=== PATIENT | female | born 1985 | race Caucasian/White ===

== ENCOUNTER 2018-10-13 15:58 | Inpatient (IN) | payer MEDICAID ==
[2018-10-13 16:31] LABS: ADD MAN DIFF? NO
[2018-10-13 16:33] LABS: BASOPHILS % 0.2 % (0.0-2.0); EOSINOPHILS # 0.1 10^3/ul (0.0-0.5); EOSINOPHILS % 1.1 % (0.0-7.0); HEMATOCRIT 36.4 % (37.0-47.0); HEMOGLOBIN 12.6 g/dl (12.0-16.0); LYMPHOCYTES # 2.4 10^3/ul (0.8-2.9); MEAN CORPUSCULAR HEMOGLOBIN 31.2 pg (29.0-33.0); MEAN CORPUSCULAR HGB CONC 34.6 g/dl (32.0-37.0); MEAN CORPUSCULAR VOLUME 90.1 fl (82.0-101.0); MEAN PLATELET VOLUME 10.3 fl (7.4-10.4); MONOCYTE # 0.7 10^3/ul (0.3-0.9); MONOCYTES % 8.1 % (0.0-11.0); NEUTROPHIL # 5.1 10^3/ul (1.6-7.5); NEUTROPHILS % 61.2 % (39.0-77.0); PLATELET COUNT 210 10^3/UL (140-415); RED BLOOD COUNT 4.04 10^6/ul (4.20-5.40); RED CELL DISTRIBUTION WIDTH 12.5 % (11.5-14.5)
[2018-10-13 16:33] LABS: WHITE BLOOD COUNT 8.3 10^3/ul (4.8-10.8)
[2018-10-13 16:51] LABS: ALANINE AMINOTRANSFERASE 21 IU/L (13-69); ALBUMIN 3.3 g/dl (3.3-4.9); ALKALINE PHOSPHATASE 145 IU/L (42-121); ANION GAP 7 (5-13); ASPARTATE AMINO TRANSFERASE 36 IU/L (15-46); BILIRUBIN,INDIRECT 0.1 mg/dl (0-1.1); BILIRUBIN,TOTAL 0.1 mg/dl (0.2-1.3); BLOOD UREA NITROGEN 9 mg/dl (7-20); CALCIUM 9.1 mg/dl (8.4-10.2); CARBON DIOXIDE 21 mmol/L (21-31); CHLORIDE 108 mmol/L (97-110); CREATININE 0.52 mg/dl (0.44-1.00); Estimated GFR > 60 mL/min (>60); GLUCOSE 82 mg/dl (70-220); POTASSIUM 4.1 mmol/L (3.5-5.1); SODIUM 136 mmol/L (135-144); TOTAL PROTEIN 6.6 g/dl (6.1-8.1); URIC ACID 5.5 mg/dl (3.1-7.9)
[2018-10-13 16:52] LABS: INR 0.76; PARTIAL THROMBOPLASTIN TIME 26.9 Sec (23.0-35.0); PROTIME 10.7 Sec (11.9-14.9); PT RATIO 0.8
[2018-10-13 16:56] LABS: ADD UMIC YES; UR ASCORBIC ACID NEGATIVE (NEGATIVE); UR BACTERIA FEW /HPF (NONE SEEN); UR BILIRUBIN (Dip) NEGATIVE (NEGATIVE); UR BLOOD (Dip) NEGATIVE (NEGATIVE); UR CLARITY CLEAR (CLEAR); UR COLOR YELLOW (YELLOW); UR GLUCOSE (Dip) NEGATIVE (NEGATIVE); UR KETONES (Dip) NEGATIVE (NEGATIVE); UR LEUKOCYTE ESTERASE (Dip) NEGATIVE Leu/ul (NEGATIVE); UR NITRITE (Dip) NEGATIVE (NEGATIVE); UR RBC 1 /HPF (0-5); UR SPECIFIC GRAVITY (Dip) 1.013 (1.003-1.030); UR TOTAL PROTEIN (Dip) 2+ mg/dl (NEGATIVE); UR UROBILINOGEN (Dip) NEGATIVE (NEGATIVE); UR WBC 0 /HPF (0-5)
[2018-10-13] MEDS: LACTATED RINGER'S 1,000 ML IV ×2 (19:49→23:33)
[2018-10-14] MEDS: LACTATED RINGER'S 1,000 ML IV (07:19)
[2018-10-14] MEDS: FERROUS SULFATE (EC) 325 MG TAB PO (09:03)
[2018-10-14] MEDS: PRENATAL VITAMIN PO (09:03)
[2018-10-14 12:16] LABS: ADD MAN DIFF? NO
[2018-10-14 12:18] LABS: BASOPHILS % 0.3 % (0.0-2.0); EOSINOPHILS # 0.1 10^3/ul (0.0-0.5); HEMATOCRIT 32.3 % (37.0-47.0); HEMOGLOBIN 11.5 g/dl (12.0-16.0); LYMPHOCYTES # 1.9 10^3/ul (0.8-2.9); LYMPHOCYTES % 26.8 % (15.0-51.0); MEAN CORPUSCULAR HEMOGLOBIN 31.9 pg (29.0-33.0); MEAN CORPUSCULAR HGB CONC 35.6 g/dl (32.0-37.0); MEAN CORPUSCULAR VOLUME 89.5 fl (82.0-101.0); MEAN PLATELET VOLUME 10.7 fl (7.4-10.4); MONOCYTE # 0.6 10^3/ul (0.3-0.9); MONOCYTES % 7.8 % (0.0-11.0); NEUTROPHIL # 4.6 10^3/ul (1.6-7.5); NEUTROPHILS % 63.8 % (39.0-77.0); PLATELET COUNT 183 10^3/UL (140-415); RED BLOOD COUNT 3.61 10^6/ul (4.20-5.40); RED CELL DISTRIBUTION WIDTH 12.5 % (11.5-14.5)
[2018-10-14 12:18] LABS: WHITE BLOOD COUNT 7.2 10^3/ul (4.8-10.8)
[2018-10-14 12:44] LABS: ALANINE AMINOTRANSFERASE 21 IU/L (13-69); ALBUMIN 2.7 g/dl (3.3-4.9); ALBUMIN/GLOBULIN RATIO 1.03; ALKALINE PHOSPHATASE 114 IU/L (42-121); ANION GAP 5 (5-13); ASPARTATE AMINO TRANSFERASE 33 IU/L (15-46); BILIRUBIN,INDIRECT 0.2 mg/dl (0-1.1); BILIRUBIN,TOTAL 0.2 mg/dl (0.2-1.3); BLOOD UREA NITROGEN 9 mg/dl (7-20); CALCIUM 8.9 mg/dl (8.4-10.2); CARBON DIOXIDE 22 mmol/L (21-31); CHLORIDE 111 mmol/L (97-110); CREATININE 0.52 mg/dl (0.44-1.00); Estimated GFR > 60 mL/min (>60); GLUCOSE 91 mg/dl (70-220); POTASSIUM 3.9 mmol/L (3.5-5.1); SODIUM 138 mmol/L (135-144); TOTAL PROTEIN 5.3 g/dl (6.1-8.1); URIC ACID 6.3 mg/dl (3.1-7.9)
[2018-10-14 18:10] LABS: COLLECTION PERIOD 24 hrs
[2018-10-14 18:31] LABS: VOLUME 1900 mls
[2018-10-14 18:33] LABS: 24HR URINE TOTAL PROTEIN > 600.0 mg/24hrs (42.0-225.0); COLLECTION PERIOD 24 hrs; CREATININE CLEARANCE 170.8 mls/min (84.0-162.0); CREATININE,URINE RANDOM 67.33 mg/dl (20-320); SCRET 0.52 mg/dl (0.44-1.00); VOLUME 1900 ml/24hrs
[2018-10-15] MEDS: FERROUS SULFATE (EC) 325 MG TAB PO (10:18)
[2018-10-15] MEDS: PRENATAL VITAMIN PO (10:18)
[2018-10-15] MEDS: DEXAMETHASONE 10 MG/ML 1 ML INJ IM ×2 (10:18→22:09)
[2018-10-16] MEDS: FERROUS SULFATE (EC) 325 MG TAB PO (08:31)
[2018-10-16] MEDS: PRENATAL VITAMIN PO (08:31)
[2018-10-16] MEDS: DEXAMETHASONE 10 MG/ML 1 ML INJ IM ×2 (09:41→23:19)
[2018-10-16 14:08] LABS: ADD MAN DIFF? NO
[2018-10-16 14:10] LABS: BASOPHILS % 0.1 % (0.0-2.0); HEMATOCRIT 33.8 % (37.0-47.0); HEMOGLOBIN 11.6 g/dl (12.0-16.0); LYMPHOCYTES # 1.2 10^3/ul (0.8-2.9); LYMPHOCYTES % 12.2 % (15.0-51.0); MEAN CORPUSCULAR HEMOGLOBIN 30.8 pg (29.0-33.0); MEAN CORPUSCULAR HGB CONC 34.3 g/dl (32.0-37.0); MEAN CORPUSCULAR VOLUME 89.7 fl (82.0-101.0); MEAN PLATELET VOLUME 10.1 fl (7.4-10.4); MONOCYTE # 0.4 10^3/ul (0.3-0.9); NEUTROPHIL # 7.9 10^3/ul (1.6-7.5); NEUTROPHILS % 82.9 % (39.0-77.0); PLATELET COUNT 191 10^3/UL (140-415); RED BLOOD COUNT 3.77 10^6/ul (4.20-5.40); RED CELL DISTRIBUTION WIDTH 12.4 % (11.5-14.5)
[2018-10-16 14:10] LABS: WHITE BLOOD COUNT 9.5 10^3/ul (4.8-10.8)
[2018-10-16 14:29] LABS: INR 0.82; PROTIME 11.4 Sec (11.9-14.9); PT RATIO 0.9
[2018-10-16 14:30] LABS: PARTIAL THROMBOPLASTIN TIME 24.6 Sec (23.0-35.0)
[2018-10-16 14:31] LABS: ALANINE AMINOTRANSFERASE 15 IU/L (13-69); ALBUMIN 3.1 g/dl (3.3-4.9); ALKALINE PHOSPHATASE 116 IU/L (42-121); ANION GAP 7 (5-13); ASPARTATE AMINO TRANSFERASE 29 IU/L (15-46); BILIRUBIN,INDIRECT 0.1 mg/dl (0-1.1); BILIRUBIN,TOTAL 0.1 mg/dl (0.2-1.3); BLOOD UREA NITROGEN 11 mg/dl (7-20); CALCIUM 9.1 mg/dl (8.4-10.2); CARBON DIOXIDE 21 mmol/L (21-31); CHLORIDE 108 mmol/L (97-110); CREATININE 0.58 mg/dl (0.44-1.00); Estimated GFR > 60 mL/min (>60); GLUCOSE 126 mg/dl (70-220); POTASSIUM 4.3 mmol/L (3.5-5.1); SODIUM 136 mmol/L (135-144); TOTAL PROTEIN 5.9 g/dl (6.1-8.1); URIC ACID 5.9 mg/dl (3.1-7.9)
[2018-10-17] MEDS: PRENATAL VITAMIN PO (08:45)
[2018-10-17] MEDS: FERROUS SULFATE (EC) 325 MG TAB PO (08:45)
== END 2018-10-17 15:20 | disposition home or self-care (01) | DRG 833 ==
LOC: OBT 15:58 → L-D 16:00 → OBT 17:25 → PP1 17:25
DX: O13.3 Gestational [pregnancy-induced] hypertension without significant proteinuria, third trimester (principal); R51 Headache; Z3A.33 33 weeks gestation of pregnancy
CPT/HCPCS: 76815; 76818; 80053; 81001; 82575; 84156; 84560; 85025; 85610; 85730

== ENCOUNTER 2018-10-20 12:59 | Inpatient (IN) | payer MEDICAID ==
[2018-10-20 13:57] LABS: ADD MAN DIFF? NO
[2018-10-20 14:01] LABS: BASOPHILS % 0.3 % (0.0-2.0); EOSINOPHILS # 0.1 10^3/ul (0.0-0.5); HEMATOCRIT 35.7 % (37.0-47.0); HEMOGLOBIN 12.3 g/dl (12.0-16.0); LYMPHOCYTES % 21.8 % (15.0-51.0); MEAN CORPUSCULAR HEMOGLOBIN 30.8 pg (29.0-33.0); MEAN CORPUSCULAR HGB CONC 34.5 g/dl (32.0-37.0); MEAN CORPUSCULAR VOLUME 89.3 fl (82.0-101.0); MEAN PLATELET VOLUME 10.4 fl (7.4-10.4); MONOCYTE # 0.6 10^3/ul (0.3-0.9); MONOCYTES % 6.6 % (0.0-11.0); NEUTROPHIL # 6.4 10^3/ul (1.6-7.5); NEUTROPHILS % 69.8 % (39.0-77.0); PLATELET COUNT 141 10^3/UL (140-415); RED CELL DISTRIBUTION WIDTH 12.6 % (11.5-14.5)
[2018-10-20 14:01] LABS: WHITE BLOOD COUNT 9.1 10^3/ul (4.8-10.8)
[2018-10-20 14:06] LABS: ADD UMIC YES; UR ASCORBIC ACID NEGATIVE (NEGATIVE); UR BACTERIA FEW /HPF (NONE SEEN); UR BILIRUBIN (Dip) NEGATIVE (NEGATIVE); UR BLOOD (Dip) NEGATIVE (NEGATIVE); UR CLARITY SLIGHTLY CLOUDY (CLEAR); UR COLOR YELLOW (YELLOW); UR GLUCOSE (Dip) NEGATIVE (NEGATIVE); UR KETONES (Dip) NEGATIVE (NEGATIVE); UR LEUKOCYTE ESTERASE (Dip) NEGATIVE Leu/ul (NEGATIVE); UR NITRITE (Dip) NEGATIVE (NEGATIVE); UR RBC 1 /HPF (0-5); UR SPECIFIC GRAVITY (Dip) 1.005 (1.003-1.030); UR TOTAL PROTEIN (Dip) 3+ mg/dl (NEGATIVE); UR UROBILINOGEN (Dip) NEGATIVE (NEGATIVE); UR WBC 2 /HPF (0-5)
[2018-10-20 14:21] LABS: ALANINE AMINOTRANSFERASE 58 IU/L (13-69); ALBUMIN 2.9 g/dl (3.3-4.9); ALBUMIN/GLOBULIN RATIO 1.07; ALKALINE PHOSPHATASE 121 IU/L (42-121); ANION GAP 5 (5-13); ASPARTATE AMINO TRANSFERASE 59 IU/L (15-46); BILIRUBIN,INDIRECT 0.3 mg/dl (0-1.1); BILIRUBIN,TOTAL 0.3 mg/dl (0.2-1.3); BLOOD UREA NITROGEN 9 mg/dl (7-20); CALCIUM 8.8 mg/dl (8.4-10.2); CARBON DIOXIDE 21 mmol/L (21-31); CHLORIDE 108 mmol/L (97-110); CREATININE 0.51 mg/dl (0.44-1.00); Estimated GFR > 60 mL/min (>60); GLUCOSE 61 mg/dl (70-220); INR 0.85; PARTIAL THROMBOPLASTIN TIME 28.6 Sec (23.0-35.0); POTASSIUM 3.9 mmol/L (3.5-5.1); PROTIME 11.7 Sec (11.9-14.9); PT RATIO 0.9; SODIUM 134 mmol/L (135-144); TOTAL PROTEIN 5.6 g/dl (6.1-8.1); URIC ACID 6.1 mg/dl (3.1-7.9)
[2018-10-20] MEDS ORDERED: CARBOPROST 250 MCG INJ IM (15:30)
[2018-10-20] MEDS ORDERED: METHYLERGONOVINE 0.2 MG INJ IM (15:30)
[2018-10-20] MEDS ORDERED: OXYTOCIN 30 UNITS/LR 500 ML IV ×2 (15:30)
[2018-10-20] MEDS ORDERED: MISOPROSTOL 200 MCG TAB PR (15:30)
[2018-10-20] MEDS ORDERED: LIDOCAINE 1% (MPF) 30 ML INJ INJ (15:30)
[2018-10-20] MEDS ORDERED: BUTORPHANOL 2 MG INJ IV (15:30)
[2018-10-20] MEDS ORDERED: BUTORPHANOL 1 MG INJ IV (15:30)
[2018-10-20] MEDS: LACTATED RINGER'S 1,000 ML IV ×2 (15:46→23:12)
[2018-10-20] MEDS: MAGNESIUM SULFATE 4 GM/100 ML 100 ML IV (15:47)
[2018-10-20] MEDS: MAGNESIUM SULFATE 20 GM/500 ML 500 ML IV (16:48)
[2018-10-20] MEDS: ACETAMINOPHEN 325 MG TAB PO (17:22)
[2018-10-20] MEDS ORDERED: LABETALOL HCL 20MG INJ IV ×2 (17:30)
[2018-10-20] MEDS: MISOPROSTOL 50 MCG CAPSULE PO ×2 (17:50→22:00)
[2018-10-20 18:00] LABS: HEPATITIS B SURFACE ANTIGEN NEGATIVE (NEGATIVE)
[2018-10-20] MEDS: DEXAMETHASONE 4 MG/ML 5 ML INJ IM (21:23)
[2018-10-21 01:09] LABS: MAGNESIUM 4.9 mg/dl (1.7-2.5)
[2018-10-21] MEDS: AMPICILLIN 2 GM/NS (PMX) 100 ML IV (01:44)
[2018-10-21] MEDS: MISOPROSTOL 50 MCG CAPSULE PO ×3 (02:13→11:40)
[2018-10-21] MEDS: MAGNESIUM SULFATE 20 GM/500 ML 500 ML IV ×2 (03:21→13:39)
[2018-10-21] MEDS: LACTATED RINGER'S 1,000 ML IV ×3 (05:34→11:39)
[2018-10-21] MEDS: AMPICILLIN 1 GM/NS (PMX) 50 ML IV ×4 (05:34→17:17)
[2018-10-21] MEDS: DEXAMETHASONE 4 MG/ML 5 ML INJ IM ×2 (07:00→14:13)
[2018-10-21 07:10] LABS: MAGNESIUM 5.3 mg/dl (1.7-2.5)
[2018-10-21] MEDS ORDERED: ROPIVACAINE 0.2% 100 ML (07:19)
[2018-10-21] MEDS ORDERED: NALOXONE (0.4 MG/ML) INJ IV (08:00)
[2018-10-21 13:12] LABS: MAGNESIUM 5.6 mg/dl (1.7-2.5)
[2018-10-21] MEDS: OXYTOCIN 30 UNITS/LR 500 ML IV ×3 (14:06→21:14)
[2018-10-21] MEDS: ROPIVACAINE 0.2% 100ML BAG EPI (16:14)
[2018-10-21 19:01] LABS: MAGNESIUM 5.5 mg/dl (1.7-2.5)
[2018-10-21] MEDS: LACTATED RINGER'S 1,000 ML IV* (19:38)
[2018-10-21] MEDS ORDERED: ACETAMINOPHEN 325 MG TAB PO (20:00)
[2018-10-21] MEDS ORDERED: DIPHENHYDRAMINE 25 MG CAP PO (20:00)
[2018-10-21] MEDS ORDERED: OXYTOCIN 30 UNITS/LR 500 ML IV (20:00)
[2018-10-21] MEDS ORDERED: ZOLPIDEM 5 MG TAB PO (20:00)
[2018-10-21] MEDS ORDERED: METHYLERGONOVINE 0.2 MG INJ IM (20:00)
[2018-10-21] MEDS ORDERED: MAGNESIUM HYDROXIDE 30ML CUP PO (20:00)
[2018-10-21] MEDS ORDERED: CARBOPROST 250 MCG INJ IM (20:00)
[2018-10-21] MEDS ORDERED: SENNA/DOCUSATE NA (8.6MG/50MG) TAB PO (20:00)
[2018-10-21] MEDS ORDERED: MISOPROSTOL 200 MCG TAB PR (20:00)
[2018-10-21 20:12] LABS: RAPID PLASMA REAGIN NONREACTIVE (NR)
[2018-10-21] MEDS ORDERED: MAGNESIUM SULFATE 2 GM/50 ML 50 ML IVPB (21:00)
[2018-10-21] MEDS: HYDROCODONE/APAP (5/325) TAB PO (21:19)
[2018-10-21] MEDS: BENZOCAINE 20% 56 ML SPRAY TOP (21:20)
[2018-10-21] MEDS: WITCH HAZEL/GLYCERIN PAD PR (21:20)
[2018-10-21] MEDS: LANOLIN HPA 1 PKT TOP (21:20)
[2018-10-22] MEDS: IBUPROFEN 800 MG TAB PO ×4 (00:19→17:45)
[2018-10-22 01:17] LABS: MAGNESIUM 5.2 mg/dl (1.7-2.5)
[2018-10-22] MEDS: MAGNESIUM SULFATE 20 GM/500 ML 500 ML IV ×2 (02:33→12:02)
[2018-10-22] MEDS: LACTATED RINGER'S 1,000 ML IV* ×3 (06:48→19:38)
[2018-10-22 08:42] LABS: ADD MAN DIFF? NO
[2018-10-22 08:45] LABS: BASOPHILS % 0.2 % (0.0-2.0); EOSINOPHILS % 0.2 % (0.0-7.0); HEMATOCRIT 27.6 % (37.0-47.0); HEMOGLOBIN 9.8 g/dl (12.0-16.0); LYMPHOCYTES # 2.6 10^3/ul (0.8-2.9); LYMPHOCYTES % 21.7 % (15.0-51.0); MEAN CORPUSCULAR HEMOGLOBIN 31.7 pg (29.0-33.0); MEAN CORPUSCULAR HGB CONC 35.5 g/dl (32.0-37.0); MEAN CORPUSCULAR VOLUME 89.3 fl (82.0-101.0); MONOCYTE # 0.6 10^3/ul (0.3-0.9); MONOCYTES % 4.8 % (0.0-11.0); NEUTROPHIL # 8.9 10^3/ul (1.6-7.5); NEUTROPHILS % 72.7 % (39.0-77.0); PLATELET COUNT 136 10^3/UL (140-415); RED BLOOD COUNT 3.09 10^6/ul (4.20-5.40); RED CELL DISTRIBUTION WIDTH 12.8 % (11.5-14.5)
[2018-10-22 08:45] LABS: WHITE BLOOD COUNT 12.2 10^3/ul (4.8-10.8)
[2018-10-22 09:10] LABS: MAGNESIUM 6.1 mg/dl (1.7-2.5)
[2018-10-23] MEDS: IBUPROFEN 800 MG TAB PO ×3 (00:57→13:01)
[2018-10-23] MEDS: LACTATED RINGER'S 1,000 ML IV* ×2 (03:38→11:38)
[2018-10-23] MEDS: MEASLES,MUMPS,RUBELLA VACCINE INJ SC* (07:45)
[2018-10-23] MEDS: VARICELLA VACCINE LIVE/PF 1,350 UNIT/0.5 ML ML SC* (09:14)
[2018-10-23] MEDS: DIPHTH/TET/ACEL PERTUSS (ADULT) 0.5 ML VIAL IM* (09:30)
== END 2018-10-23 14:42 | disposition home or self-care (01) | DRG 807 ==
LOC: OBT 12:59 → PP1 10-21 19:37 → L-D 13:00 → OBT 14:50 → L-D 15:03
PROC: 3E033VJ Introduction of Other Hormone into Peripheral Vein, Percutaneous Approach (ICD-10-PCS; 2018-10-20)
PROC: 10E0XZZ Delivery of Products of Conception, External Approach (ICD-10-PCS; principal; 2018-10-21)
DX: O14.94 Unspecified pre-eclampsia, complicating childbirth (principal); Z37.0 Single live birth; Z3A.34 34 weeks gestation of pregnancy
CPT/HCPCS: 62319; 80053; 81001; 83735; 84560; 85025; 85384; 85610; 85730; 86592; 86850; 86900; 86901; 87340; 88307; 90715; 90716; 99464